=== PATIENT | female | born 1950 | race Caucasian/White ===

== ENCOUNTER 2019-11-15 06:50 | Day surgery (SDC) | payer MEDICARE, OTHER ==
[~2019-11-15] VITALS: Ht 153.7 cm; Wt 63.5 kg
[~2019-11-15 06:50] MED LIST: APIX5TAB PO; ATO40T PO; AZIL40TA2 PO; INSLANTI SC; LACTCAP35 PO; LATA0.0019 EACHEYE; LINA5TAB PO; METF-370 PO; MULT-927 PO; OME20T PO; SOTA80TA PO; TIMO0.2521 EACHEYE
[2019-11-15] MEDS ORDERED: LIDOCAINE 2%HCL (LOCAL ANESTH.) INJ 20ML MDV ONE (07:16)
[2019-11-15] MEDS ORDERED: ANGIOMAX 250 MG VIAL IV ONE (07:36)
[2019-11-15] MEDS ORDERED: HEPARIN SODIUM (PORCINE) 5000 UNITS/ML 1ML VIAL ONE (07:36)
[2019-11-15] MEDS ORDERED: VERAPAMIL 2.5MG/ML INJ 2ML VIAL IV ONE (07:37)
[2019-11-15] MEDS ORDERED: SODIUM CHL 0.9% 0 ML ONE (07:37)
[2019-11-15] MEDS ORDERED: MIDAZOLAM HCL 1MG/1ML-2 ML VIAL ONE (07:37)
[2019-11-15] MEDS ORDERED: fentaNYL CITRATE 100 MCG/2 ML VL ONE (07:37)
[2019-11-15] MEDS ORDERED: ONDANSETRON HCL 4 MG/2 ML VIAL IV PRN (10:15)
[2019-11-15] MEDS ORDERED: HYDROcodone-ACET 5/325MG TAB PO PRN (10:15)
[2019-11-15] MEDS ORDERED: ACETAMINOPHEN 500 MG TAB PO PRN (10:15)
== END 2019-11-15 11:13 | disposition home or self-care (01) ==
LOC: CATH 06:50
PROVIDERS: ATTEND Internal Medicine Cardiovascular Disease
DX: I25.10 Atherosclerotic heart disease of native coronary artery without angina pectoris (principal); E78.5 Hyperlipidemia, unspecified; I11.9 Hypertensive heart disease without heart failure; J98.8 Other specified respiratory disorders; E10.9 Type 1 diabetes mellitus without complications; E78.00 Pure hypercholesterolemia, unspecified; Z11.59 Encounter for screening for other viral diseases; Z88.0 Allergy status to penicillin; Z88.6 Allergy status to analgesic agent; Z88.2 Allergy status to sulfonamides; Z79.899 Other long term (current) drug therapy; Z98.890 Other specified postprocedural states
CPT/HCPCS: 93454; C1769; C1887; C1894; J1644; J2250; J3010; J7030; U0003; 99152